=== PATIENT | male | born 1955 | race Caucasian/White ===

== ENCOUNTER 2016-08-17 06:47 | Day surgery (SDC) | payer OTHER ==
[~2016-08-17] VITALS: Ht 177.8 cm; Wt 102.1 kg
[~2016-08-17 06:47] MED LIST: AMBIEN5 MG PO; ASPIRIN 81 LOW81 MG PO; CIPRO XR500 MG PO; CYMBALTA60 MG PO; DILAUDID2 MG PO; LORTAB 5/3255 MG PO; LORTAB5 PO; METFORMIN1000 MG PO; MOTRIN400 MG PO; OXYCODONE HCL5 MG PO; PERCOCET 5/325M1 TAB PO; PRAVASTATIN SOD20 MG PO; PREVACID30 M3 PO; PROZAC20 MG PO; ULTRAM50 M1 PO; VENLAFAXINE150 M1 PO; ZESTRIL10 M1 PO; ZOFRAN ODT4 MG PO
[2016-08-17 09:36] VITALS: BP 114/78
== END 2016-08-17 09:35 | disposition home or self-care (01) | DRG 951 ==
LOC: ENDO 06:47
PROVIDERS: ATTEND Surgery
PROC: 0DJD8ZZ Inspection of Lower Intestinal Tract, Via Natural or Artificial Opening Endoscopic (ICD-10-PCS; principal; 2016-08-17)
DX: Z12.11 Encounter for screening for malignant neoplasm of colon (principal); I10 Essential (primary) hypertension; E11.9 Type 2 diabetes mellitus without complications; I25.10 Atherosclerotic heart disease of native coronary artery without angina pectoris; F32.9 Major depressive disorder, single episode, unspecified; E66.3 Overweight; K57.30 Diverticulosis of large intestine without perforation or abscess without bleeding; K64.8 Other hemorrhoids; Z79.84 Long term (current) use of oral hypoglycemic drugs

== ENCOUNTER 2017-03-21 10:24 | Emergency (ER) | payer OTHER ==
[~2017-03-21] VITALS: Ht 177.8 cm; Wt 102.0 kg
[2017-03-21] MEDS ORDERED: MOTRIN200 MG PO (10:48)
[2017-03-21 11:04] LABS: HEMATOCRIT 45.5 % (39.0-50.0); HEMOGLOBIN 15.9 g/dl (14.0-18.0); IMMATURE GRANULOCYTES 0.6 % (0.0-1.0); MEAN CORPUSCULAR HGB 33.5 pG CALC (26.0-32.0); MEAN CORPUSCULAR HGB CONC 34.9 g/L CALC (32.0-36.0); NEUT# 6.31 thou/uL (1.82-7.42); RED BLOOD COUNT 4.74 mill/uL (4.70-6.10); RED CELL DISTRI WIDTH 12.2 % (11.5-15.5); URINE BILIRUBIN - DIPSTICK NEGATIVE (NEGATIVE); URINE BLOOD DIPSTICK MODERATE (NEGATIVE); URINE CLARITY CLEAR; URINE COLOR YELLOW; URINE GLUCOSE - DIPSTICK NEGATIVE (NEGATIVE); URINE KETONE NEGATIVE (NEGATIVE); URINE LEUK ESTERASE NEGATIVE (NEGATIVE); URINE NITRITE - DIPSTICK NEGATIVE (Negative); URINE PH 5.5 (4.5-8.0); URINE PROTEIN - DIPSTICK NEGATIVE (NEG-TRACE); URINE SPECIFIC GRAVITY <=1.005; URINE UROBILINOGEN - DIPSTICK 0.2 E.U./dL (0.2)
[2017-03-21 11:10] LABS: URINE RBC 0-2 RBC/hpf (0-5)
[2017-03-21 11:16] LABS: ALBUMIN 4.5 g/dL (3.2-5.0); ALKALINE PHOSPHATASE 84 u/l (38-126); ANION GAP 18 (6-22 (CALC)); BILIRUBIN, TOTAL 0.8 mg/dL (0.0-1.4); BUN 15 mg/dL (9-20); BUN/CREATININE RATIO 13 (12-20 (CALC)); CALCIUM 9.3 mg/dL (8.4-10.2); CARBON DIOXIDE 23 mmol/l (22-30); CHLORIDE 102 mmol/l (95-108); CREATININE 1.2 mg/dL (0.7-1.3); GFR > 60 ML/MIN (>=60 (CALC)); GFR FOR AFR.AMER. > 60 ML/MIN (>=60 (CALC)); GLUCOSE 207 mg/dL (75-110); POTASSIUM 3.8 mmol/l (3.5-5.1); SGOT/AST 24 u/l (17-59); SGPT/ALT 34 u/l (21-72); SODIUM 138 mmol/l (137-146); TOTAL PROTEIN 7.1 g/dL (6.3-8.2)
[2017-03-21] MEDS ORDERED: LORTAB 5/3255 MG PO (13:10)
[2017-03-21] MEDS ORDERED: TAMSULOSIN0.4 MG PO (13:10)
[2017-03-21 13:18] VITALS: BP 160/99
== END 2017-03-21 13:27 | disposition home or self-care (01) | DRG 392 ==
LOC: ED 10:24
PROVIDERS: Emergency Medicine
DX: R10.31 Right lower quadrant pain (principal); N20.0 Calculus of kidney; I10 Essential (primary) hypertension; F32.9 Major depressive disorder, single episode, unspecified; E11.9 Type 2 diabetes mellitus without complications; E78.00 Pure hypercholesterolemia, unspecified; Z87.442 Personal history of urinary calculi